=== PATIENT | male | born 1950 | race Caucasian/White ===

== ENCOUNTER 2019-06-24 11:27 | Emergency (ER) | payer BC, OTHER ==
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
== END 2019-06-24 12:32 | disposition home or self-care (01) ==
LOC: ER 11:27
DX: G89.11 Acute pain due to trauma (principal); R07.89 Other chest pain; V53.5XXA Driver of pick-up truck or van injured in collision with car, pick-up truck or van in traffic accident, initial encounter; Y92.488 Other paved roadways as the place of occurrence of the external cause
CPT/HCPCS: 71046; 93005; 93010; 99284